=== PATIENT | female | born 2000 | race Caucasian/White ===

== ENCOUNTER 2019-04-19 10:33 | Emergency (ER) | payer BC ==
--- NOTE | 2019-04-19 10:55 | ED ---
Abdominal Pain/Female - HPI Summary HPI Summary: Patient is a 18 y/o F presenting to the ED for a chief complaint of suprapubic abdominal pain that began the night of 04/18/19 after eating. She admits nausea and vomiting 6-7 times, with the last episode of vomiting occurring at 23:00 on 04/18/19. Patient also admits 2 episodes of some liquid in her stool, but denies diarrhea. She had shortness of breath and felt "hot" on the morning of . The abdominal pain worsens with lying down, and she rates the pain as 6/ 10 in severity. Patient notes being unable to sleep due to the pain. Patient denies dysuria, hematuria, urinary burning, or fever. Patient denies any alleviating factors. She was seen at [facility] and sent to [facility] for a possible appendicitis after having RLQ abdominal tenderness. No blood work was performed at [facility]. She denies any significant PMHx of PSHx, but admits a FMHx of HTN and DM. - History of Current Complaint Chief Complaint: EDAbdPain Stated Complaint: STOMACH PAIN PER PT Time Seen by Provider: 04/19/19 10:52 Hx Obtained From: Patient Onset/Duration: Sudden Onset, Still Present Timing: Constant Severity Initially: Moderate Severity Currently: Moderate Pain Intensity: 6 Pain Scale Used: 0-10 Numeric Location: Suprapubic Radiates: No Aggravating Factor(s): Other: - Lying down Alleviating Factor(s): Nothing Associated Signs and Symptoms: Positive: Nausea, Vomiting, Other: - Positive SOB and "hot" sensation. Negative: Fever, Urinary Symptoms - Negative dysuria, hematuria, or urinary burning, Diarrhea Allergies/Adverse Reactions: Allergies Allergy/AdvReac Type Severity Reaction Status Date / Time No Known Allergies Allergy Verified 04/19/19 10:41 Home Medications: Home Medications Norgestimate-Eth Estradiol(NF) [Ortho Tri-Cyclen (NF)] 1 tab PO DAILY 04/19/19 [ History Confirmed 04/19/19] PMH/Surg Hx/FS Hx/Imm Hx Previously Healthy: Yes Endocrine/Hematology History: Denies: Hx Diabetes Cardiovascular History: Denies: Hx Hypercholesterolemia, Hx Hypertension Sensory History: Denies: Hx Legally Blind, Hx Deafness Opthamlomology History: Denies: Hx Legally Blind EENT History: Denies: Hx Deafness - Surgical History Surgical History: None Surgery Procedure, Year, and Place: None Infectious Disease History: No Infectious Disease History: Denies: Traveled Outside the [place] in Last 30 Days - Family History Known Family History: Positive: Hypertension, Diabetes - Social History Occupation: Student Lives: Alone Alcohol Use: None Hx Substance Use: No Substance Use Type: Reports: None Hx Tobacco Use: No Smoking Status (MU): Never Smoked Tobacco Review of Systems Positive: Other - Positive "hot" sensation. Negative: Fever Positive: Shortness Of Breath Positive: Abdominal Pain - Suprapubic, Vomiting, Nausea, Other - Positive two episodes of liquidy stools. Negative: Diarrhea Negative: burning - Urinary, dysuria, hematuria All Other Systems Reviewed And Are Negative: Yes Physical Exam - Summary Physical Exam Summary: Constitutional: Well-developed, Well-nourished, Alert. (-) Distressed Skin: Warm, Dry HENT: Normocephalic; Atraumatic Eyes: Conjunctiva normal Neck: Musculoskeletal ROM normal neck. (-) JVD, (-) Stridor, (-) Nuchal rigidity Cardio: Rhythm regular, Heart sounds normal; Intact distal pulses; Radial pulses are 2+ and symmetric. (-) Murmur. Tachycardic. Pulmonary/Chest wall: Effort normal. (-) Respiratory distress, (-) Wheezes, (-) Rales Abd: Soft, (-) Distension, (-) Guarding, (-) Rebound. Suprapubic abdominal tenderness. Musculoskeletal: (-) Edema Lymph: (-) Cervical adenopathy Neuro: Alert, Oriented x3 Psych: Mood and affect Normal Triage Information Reviewed: Yes Vital Signs On Initial Exam: Initial Vitals Temp Pulse Resp BP Pulse Ox 99.4 F 122 18 131/79 97 04/19/19 10:36 04/19/19 10:36 04/19/19 10:36 04/19/19 10:36 04/19/19 10:36 Vital Signs Reviewed: Yes Procedures - Sedation Patient Received Moderate/Deep Sedation with Procedure: No Diagnostics - Vital Signs Vital Signs Temp Pulse Resp BP Pulse Ox 04/19/19 10:36 99.4 F 122 18 131/79 97 - Laboratory Result Diagrams: 04/19/19 10:59 04/19/19 10:59 Lab Statement: Any lab studies that have been ordered have been reviewed, and results considered in the medical decision making process. - CT Abdomen/Pelvis CT CT Interpretation Completed By: Radiologist Summary of CT Findings: Abdomen/Pelvis CT IMPRESSION: #. No abdominal pelvic pathologic process evident. Negative exam. Reviewed by Dr. Calabrese. Re-Evaluation - Re-Evaluation First Eval Re-Evaluation Time: 13:27 Change: Worse Comment: At 13:27, Febrile. given Tylenol and Zosyn x1 pending LA and CT results. Second Re-Evaluation Time: 14:55 Change: Unchanged Comment: At 14:55, patient has a temperature of 100.5 F. I will give her fluids and Motrin before discharge. UA ordered Abdominal Pain Fem Course/Dx - Course Course Of Treatment: 18 y/o F p/w lower abdominal pain, n/v for one day. - PE w diffuse lower abd pain, VS notable for tachycardia. DDx includes appendicitis , pancreatitis, GERD, renal stone, UTI, Cholecystitis, SBO, ectopic, PID, ovarian torsion, fibroids. Exam relatively unremarkable today, no rigidity or suggestions of acute surgical abd. Pt with negative Oliveros's on exam. Will provide IVFs and zofran. Lipase to evaluate for pancreatitis. Will obtain cbc to assess for underlying infection. Cmp given reports of vomiting. Serum to r/o ectopic. Less likely ovarian torsion given location of pain and no focal TTP on exam. Pt denies pelvic pain and vaginal discharge, so less likely PID. Will obtain UA to assess for UTI. CT a/p for appendicitis. Given zosyn x1, LA normal. - Diagnoses Provider Diagnoses: Gastroenteritis, Abdominal pain Discharge ED - Sign-Out/Discharge Documenting (check all that apply): Patient Departure - Discharge - Discharge Plan Condition: Stable Disposition: HOME Prescriptions: Ondansetron ODT TAB* [Zofran 4 MG Odt TAB*] 4 mg PO Q8H PRN 4 Days #12 tab.odt PRN Reason: Nausea/Vomiting Patient Education Materials: Gastroenteritis (ED) Referrals: [facility] [Outside] Additional Instructions: You were seen in the emergency department for abdominal pain. Your CT did not show any evidence of appendicitis. If any studies were not completed at the time of discharge you will be called with the relevant results. Please follow up with your primary care doctor in the next 2-3 days and return to the emergency department for worsening pain, inability to eat or drink, or concerning symptoms. It was a pleasure taking care of you today. - Billing Disposition and Condition Condition: STABLE Disposition: Home - Attestation Statements Document Initiated by Emma: Yes Documenting Scribe: Zaida Baca Provider For Whom Emma is Documenting (Include Credential): Laura Calabrese MD Scribe Attestation: IZaida, scribed for Laura Calabrese MD on 04/19/19 at 1619. Scribe Documentation Reviewed: Yes Provider Attestation: The documentation as recorded by the Zaida almaraz accurately reflects the service I personally performed and the decisions made by , Laura Calabrese MD Status of Scribe Document: Viewed
[2019-04-19 11:06] LABS: ABS Lymphocytes 0.7 10^3/ul (1.0-4.8); ABS Monocytes 0.4 10^3/ul (0-0.8); ABS Neutrophils 10.4 10^3/ul (1.5-7.7); Hematocrit 41 % (35-47); Hemoglobin 14.6 g/dL (12.0-16.0); Lymphocyte % 6.1 %; Mean Corpuscular HGB Conc 35 g/dL (31-36); Mean Corpuscular Hemoglobin 32 pg (27-31); Mean Corpuscular Volume 92 fL (80-97); Platelet Count 330 10^3/uL (150-450); Red Blood Count 4.52 10^6 /uL (3.70-4.87); Red Cell Distribution Width 12 % (10-15); White Blood Count 11.5 10^3/uL (3.5-10.8)
[2019-04-19] MEDS ORDERED: Ondansetron INJ* 2 MG/ML VIAL IV ONE (11:08)
[2019-04-19] MEDS ORDERED: NS 0.9% 1000 ML** 1,000 ML IV ONE ×2 (11:08→14:55)
[2019-04-19 11:33] LABS: HCG Pregnancy < 0.60 mIU/mL
[2019-04-19 11:42] LABS: ALT 18 U/L (7-52); AST 19 U/L (13-39); Albumin 4.3 g/dL (3.2-5.2); Albumin/Globulin Ratio 1.5 (1-3); Alkaline Phosphatase 43 U/L (34-104); Anion Gap 11 mmol/L (2-11); BUN/Creatinine Ratio 15.4 (8-20); Blood Urea Nitrogen 10 mg/dL (6-24); CO2 Carbon Dioxide 24 mmol/L (22-32); Calcium 9.3 mg/dL (8.6-10.3); Chloride 102 mmol/L (101-111); EGFR African American 142.1 (>60); EGFR Non-African American 117.4 (>60); Globulin 2.9 g/dL (2-4); Glucose 109 mg/dL (70-100); Potassium 3.7 mmol/L (3.5-5.0); Sodium 137 mmol/L (135-145); Total Protein 7.2 g/dL (6.4-8.9)
[2019-04-19] MEDS ORDERED: Morphine 4 MG/ML VIAL (1 ml) 4 MG/ML VIAL IV ONE (13:11)
[2019-04-19] MEDS ORDERED: Acetaminophen TAB* 325 MG PO ONE (13:26)
[2019-04-19] MEDS ORDERED: Piperacillin/Tazobac ADVAN(*) 3.375 GM in NS 0.9% 100 ML* 100 ML IVPB ONE (13:27)
[2019-04-19] MEDS ORDERED: Metoclopramide IV* 5 MG/ML 2 ML VIAL IV SLOW PU ONE (13:31)
[2019-04-19] MEDS ORDERED: Iohexol 300* (CONTRAST) 10 ML SDV IV ONE (13:44)
[2019-04-19] MEDS ORDERED: Ibuprofen TAB* 600 MG PO ONE (14:55)
[2019-04-19 16:16] LABS: Urine Appearance Clear; Urine Bilirubin Negative (Negative); Urine Blood Negative (Negative); Urine Color Straw; Urine Glucose Negative (Negative); Urine Ketones Negative (Negative); Urine Nitrite Negative (Negative); Urine Protein Negative (Negative); Urine Specific Gravity 1.046 (1.010-1.030); Urine Urobilinogen Negative (Negative)
== END 2019-04-19 16:27 | disposition home or self-care (01) ==
LOC: ED 10:33
DX: K52.9 Noninfective gastroenteritis and colitis, unspecified (principal)
CPT/HCPCS: 36415; 74177; 80053; 81003; 83605; 83690; 84702; 85025; 96361; 96365; 96375; 99283; A9270-GY; J2270; J2405; J2543; J2765; Q9967